=== PATIENT | female | born 1950 | race Caucasian/White ===

== ENCOUNTER 2017-08-13 17:58 | Inpatient (IN) | payer OTHER ==
[~2017-08-13] VITALS: Ht 165.1 cm; Wt 77.1 kg
[~2017-08-13 17:58] MED LIST: BACID CAPLET1 EACH PO; LEVAQUIN750 MG PO; METHOTREXATE2.5 MG PO; OMEGA-3100 MG PO; OXYC1TAB9 PO; PROTONIX40 MG PO; RESTORIL30 MG PO; STELARA130 MG/26 IV; VITAMIN D3400 UNI1 PO; WELLBUTRIN SR150 MG PO
[2017-08-18] MEDS ORDERED: FLAGYL500MG PO (11:25)
[2017-08-18] MEDS ORDERED: PERCOCET 5-3251 EACH PO (11:27)
[2017-08-18] MEDS ORDERED: CIPRO500 MG PO (11:37)
== END 2017-08-18 11:52 | disposition home or self-care (01) | DRG 418 ==
LOC: ER 17:58 → SURH 08-14 08:43 → SEC-K 08-14 08:43 → SURH 08-14 10:45
PROVIDERS: Surgery
PROC: BF37ZZZ Magnetic Resonance Imaging (MRI) of Pancreas (ICD-10-PCS; 2017-08-14)
PROC: 0W9G4ZX Drainage of Peritoneal Cavity, Percutaneous Endoscopic Approach, Diagnostic (ICD-10-PCS; 2017-08-16)
PROC: 0DNW4ZZ Release Peritoneum, Percutaneous Endoscopic Approach (ICD-10-PCS; 2017-08-16)
PROC: 0DQ84ZZ Repair Small Intestine, Percutaneous Endoscopic Approach (ICD-10-PCS; 2017-08-16)
PROC: BF13YZZ Fluoroscopy of Gallbladder and Bile Ducts using Other Contrast (ICD-10-PCS; 2017-08-16)
PROC: 0FT44ZZ Resection of Gallbladder, Percutaneous Endoscopic Approach (ICD-10-PCS; principal; 2017-08-16 07:00)
DX: K80.00 Calculus of gallbladder with acute cholecystitis without obstruction (principal); J95.89 Other postprocedural complications and disorders of respiratory system, not elsewhere classified; J98.11 Atelectasis; K91.72 Accidental puncture and laceration of a digestive system organ or structure during other procedure; F17.200 Nicotine dependence, unspecified, uncomplicated; F32.89 Other specified depressive episodes; L40.8 Other psoriasis; M06.89 Other specified rheumatoid arthritis, multiple sites; D12.0 Benign neoplasm of cecum; R09.02 Hypoxemia

== ENCOUNTER 2018-01-30 06:15 | Day surgery (SDC) | payer OTHER ==
[~2018-01-30 06:15] MED LIST changes: +CIPRO500 MG PO; +FLAGYL500MG PO; +PERCOCET 5-3251 EACH PO
== END 2018-01-30 09:00 | disposition home or self-care (01) ==
LOC: AMB-ENDOS 06:15
DX: K57.30 Diverticulosis of large intestine without perforation or abscess without bleeding (principal); K64.8 Other hemorrhoids

== ENCOUNTER → 2021-03-09 | Day surgery (SDC) | payer OTHER | END | disposition home or self-care (01) | LOC: ADM 03-05 14:30 → AMB-ENDOS 07:33 | PROVIDERS: ATTEND Surgery | DX: K62.89 Other specified diseases of anus and rectum (principal); K64.8 Other hemorrhoids; Z20.822 Contact with and (suspected) exposure to COVID-19 ==

== ENCOUNTER 2021-09-16 09:14 | Inpatient (IN) | payer OTHER ==
[~2021-09-16] VITALS: Ht 165.1 cm; Wt 83.9 kg
[2021-09-16] MEDS ORDERED: FOLIC ACID20 MG (09:35)
[2021-09-16] MEDS ORDERED: LUNESTA3 MG PO (09:37)
[2021-09-16] MEDS ORDERED: CLONAZEPAM1 MG PO (09:37)
[2021-09-18] MEDS ORDERED: DERMOPLAST PAIN78 GM TOP ×2 (16:51→22:34)
[2021-09-18] MEDS ORDERED: GABAPENTIN300 MG PO (16:51)
[2021-09-18] MEDS ORDERED: OXYC1TAB9 PO (16:51)
[2021-09-18] MEDS ORDERED: KETO10TA2 PO (22:34)
[2021-09-18] MEDS ORDERED: NEURONTIN300 MG PO (22:34)
== END 2021-09-19 00:02 | disposition home or self-care (01) | DRG 348 ==
LOC: ER 09:14 → SURG 10:47 → SEC-K 10:47 → SURG 20:58
PROVIDERS: ADMIT Surgery; ATTEND Surgery
PROC: 06BY0ZC Excision of Hemorrhoidal Plexus, Open Approach (ICD-10-PCS; principal; 2021-09-16 14:00)
DX: K64.3 Fourth degree hemorrhoids (principal); J98.11 Atelectasis; Z20.822 Contact with and (suspected) exposure to COVID-19; M06.89 Other specified rheumatoid arthritis, multiple sites; L40.8 Other psoriasis